=== PATIENT | male | born 1975 | race Two or more races ===

== ENCOUNTER → 2022-07-08 | Outpatient (CLI) | payer OTHER ==
[~2022-07-08] VITALS: Ht 175.3 cm; Wt 75.3 kg
[~2022-07-08] MED LIST: ADENOSINE 63 MG in GIVE UN-DILUTED 0 ML IV ONE
== END | disposition home or self-care (01) ==
LOC: XYW 08:43
PROVIDERS: ATTEND Specialist
DX: R06.02 Shortness of breath (principal)
CPT/HCPCS: 78452; 93017; A9500; J0153